=== PATIENT | male | born 1935 | race Caucasian/White ===

== ENCOUNTER 2018-05-07 07:54 | Inpatient (IN) ==
[2018-05-04 11:56] LABS: Basophils % 0.5 % (0.0-0.8); Eosinophils # 0.1 10*3/uL (0.0-0.87); Eosinophils % 1.2 % (0.00-10.9); Hemoglobin 11.1 GM/DL (14.0-18.0); Immature Granulocytes % 0.3 %; Immature Granulocytes Absolute 0.02 #; Lymphocytes # 1.2 10*3/uL (1.4-4.0); Lymphocytes % 20.4 % (21.2-54.2); Mean Corpuscular HGB Conc 31.7 GM/DL (32-36); Mean Corpuscular Hemoglobin 29 PG (27-34); Mean Corpuscular Volume 90.4 FL (87-102); Mean Platelet Volume 9.7 FL (9.6-12.0); Monocytes # 0.4 10*3/uL (0.11-0.8); Monocytes % 5.8 % (1.7-12.7); Neutrophils # 4.4 10*3/uL (1.4-7.4); Neutrophils % 71.8 % (38.7-73.9); Platelet Count 201 T/CUMM (130-400); Red Blood Count 3.87 MC/CUMM (3.8-5.5); Red Cell Distribution Width 17.2 % (9.3-17.3); White Blood Count 6.1 T/CUMM (4-12)
[2018-05-04 12:30] LABS: Albumin 3.7 G/DL (3.4-5.0); Bilirubin,Total 0.5 MG/DL (0.2-1.0); Calcium 8.7 MG/DL (8.5-10.1); Osmolality,Calculated 286.1 MOS/KG (273-304); Total Protein 6.9 G/DL (6.4-8.3)
[~2018-05-07 07:54] MED LIST: ALVIMOPAN 12 MG CAPSULE PO ONE; cefOXitin 2,000 MG in SYRINGE 1 EACH IV ONE
[2018-05-07] MEDS ORDERED: ONDANSETRON 4 MG/2 ML VIAL IV ONE (08:22)
[2018-05-07] MEDS ORDERED: FAMOTIDINE 20 MG TABLET PO ONE (08:22)
[2018-05-07] MEDS ORDERED: LACTATED RINGERS 1,000 ML IV SCH (08:30)
[2018-05-07] MEDS ORDERED: BUPIVACAINE MPF 0.25% /EPI 30 ML VIAL ONE (08:45)
[2018-05-07] MEDS ORDERED: LIDOCAINE 1%/EPI INJ 20 ML VIAL ONE (08:45)
[2018-05-07] MEDS ORDERED: ALVIMOPAN 12 MG CAPSULE ONE (09:14)
[2018-05-07] MEDS ORDERED: ONDANSETRON 4 MG/2 ML VIAL ONE (09:14)
[2018-05-07] MEDS ORDERED: FAMOTIDINE 20 MG TABLET ONE (09:14)
[2018-05-07] MEDS ORDERED: MORPHINE 4 MG/1 ML VIAL IV PRN (11:47)
[2018-05-07] MEDS ORDERED: ALBUTEROL/IPRATROPIUM 3 ML NEB RESP TX PRN (11:47)
[2018-05-07] MEDS ORDERED: LACTATED RINGERS 1,000 ML IV ONE (12:11)
[2018-05-07] MEDS ORDERED: SEVOFLURANE 1 UNIT/15 MINUTE INH ONE (12:11)
[2018-05-07] MEDS ORDERED: fentaNYL 100 MCG/2 ML VIAL ONE ×2 (12:13→12:16)
[2018-05-07] MEDS ORDERED: PROPOFOL 200 MG/20 ML VIAL IV ONE (12:13)
[2018-05-07] MEDS ORDERED: KETAMINE 500 MG/10 ML VIAL ONE (12:14)
[2018-05-07] MEDS ORDERED: GLYCOPYRROLATE 0.4 MG/2 ML VIAL ONE ×2 (12:15)
[2018-05-07] MEDS ORDERED: SUCCINYLCHOLINE 200 MG/10 ML VIAL ONE (12:15)
[2018-05-07] MEDS ORDERED: ROCURONIUM 100 MG/10 ML VIAL IV ONE (12:15)
[2018-05-07] MEDS ORDERED: ePHEDrine 50 MG/ML AMP ONE (12:15)
[2018-05-07] MEDS ORDERED: NEOSTIGMINE 10 MG/10 ML VIAL ONE (12:16)
[2018-05-07] MEDS ORDERED: ONDANSETRON 4 MG/2 ML VIAL IV PRN (12:29)
[2018-05-07] MEDS: HYDROmorphone 2 MG/1 ML VIAL IV PRN ×5 (12:33→19:46)
[2018-05-07 12:35] LABS: Apearance,Urine CLEAR (Clear); Bilirubin,Urine Negative (Negative); Blood, Urine Negative (Negative); Glucose,Urine (UA) Negative (Negative); Ketones,Urine Negative (Negative); Mucus,Urine Occasional /LPF (Occasional); Nitrite,Urine Negative (Negative); Protein,Urine Negative; RBC,Urine 2 /HPF (0-4); Squamous Epithelial Cell,Urine Occasional /HPF (0-10); Urine Color Yellow (Yellow); Urine Urobilinogen < 2.0 EU/DL (0.2-1.0); WBC,Urine <1 /HPF (0-6)
[2018-05-07] MEDS: DEXTROSE 5% LACTATED RINGERS 1,000 ML IV SCH ×2 (13:15→21:43)
[2018-05-07] MEDS: NON-FORMULARY MEDICATION (Naloxegol Oxalate [Movantik] 25 MG) PO SCH (13:53)
[2018-05-07 14:03] LABS: Hemoglobin 10.6 GM/DL (14.0-18.0)
[2018-05-07] MEDS: cefOXitin 2,000 MG in SYRINGE 1 EACH IV SCH ×2 (15:14→21:43)
[2018-05-07 20:16] LABS: Hematocrit 29.6 VOL% (42.0-52.0); Hemoglobin 9.4 GM/DL (14.0-18.0)
[2018-05-07] MEDS: DILTIAZEM CD 180 MG CAPSULE PO SCH (21:43)
[2018-05-08] MEDS: ONDANSETRON 4 MG/2 ML VIAL IV PRN ×2 (01:11→09:40)
[2018-05-08] MEDS ORDERED: FAMOTIDINE 20 MG/2 ML VIAL IV ONE (02:06)
[2018-05-08 03:41] LABS: Basophils % 0.3 % (0.0-0.8); Hematocrit 29.5 VOL% (42.0-52.0); Hemoglobin 9.3 GM/DL (14.0-18.0); Immature Granulocytes % 0.4 %; Immature Granulocytes Absolute 0.03 #; Lymphocytes # 0.8 10*3/uL (1.4-4.0); Lymphocytes % 9.6 % (21.2-54.2); Mean Corpuscular HGB Conc 31.5 GM/DL (32-36); Mean Corpuscular Hemoglobin 28 PG (27-34); Mean Corpuscular Volume 90.2 FL (87-102); Mean Platelet Volume 9.7 FL (9.6-12.0); Monocytes # 0.6 10*3/uL (0.11-0.8); Monocytes % 7.4 % (1.7-12.7); Neutrophils # 6.6 10*3/uL (1.4-7.4); Neutrophils % 82.3 % (38.7-73.9); Platelet Count 198 T/CUMM (130-400); Red Blood Count 3.27 MC/CUMM (3.8-5.5); Red Cell Distribution Width 17.3 % (9.3-17.3)
[2018-05-08 04:08] LABS: Calcium 7.9 MG/DL (8.5-10.1); Osmolality,Calculated 290.8 MOS/KG (273-304); Potassium 3.9 MMOL/L (3.5-5.1)
[2018-05-08] MEDS: cefOXitin 2,000 MG in SYRINGE 1 EACH IV SCH (04:43)
[2018-05-08] MEDS: DEXTROSE 5% LACTATED RINGERS 1,000 ML IV SCH (06:37)
[2018-05-08] MEDS: DILTIAZEM CD 180 MG CAPSULE PO SCH ×2 (08:42→21:21)
[2018-05-08] MEDS: PANTOPRAZOLE 40 MG TABLET PO SCH (08:42)
[2018-05-08] MEDS: GLIMEPIRIDE 2 MG TABLET PO PRN (08:42)
[2018-05-08] MEDS: APIXABAN 5 MG TABLET PO SCH ×2 (09:48→21:21)
[2018-05-08] MEDS: NON-FORMULARY MEDICATION (Naloxegol Oxalate [Movantik] 25 MG) PO SCH (14:43)
[2018-05-09] MEDS: INSULIN REGULAR 100 UNIT/ML SUBCUT SCH ×4 (07:48→20:13)
[2018-05-09] MEDS: PANTOPRAZOLE 40 MG TABLET PO SCH (09:21)
[2018-05-09] MEDS: APIXABAN 5 MG TABLET PO SCH ×2 (09:21→21:12)
[2018-05-09] MEDS: DILTIAZEM CD 180 MG CAPSULE PO SCH ×2 (09:24→21:12)
[2018-05-09] MEDS: NON-FORMULARY MEDICATION (Naloxegol Oxalate [Movantik] 25 MG) PO SCH (11:24)
[2018-05-09] MEDS: DEXTROSE 5% LACTATED RINGERS 1,000 ML IV SCH (12:27)
[2018-05-09] MEDS: HYDROmorphone 2 MG/1 ML VIAL IV PRN (15:02)
[2018-05-10 05:41] LABS: Basophils % 0.1 % (0.0-0.8); Eosinophils # 0.2 10*3/uL (0.0-0.87); Eosinophils % 2.1 % (0.00-10.9); Hematocrit 28.8 VOL% (42.0-52.0); Hemoglobin 9.1 GM/DL (14.0-18.0); Immature Granulocytes % 0.5 %; Immature Granulocytes Absolute 0.04 #; Lymphocytes # 1.1 10*3/uL (1.4-4.0); Lymphocytes % 14.7 % (21.2-54.2); Mean Corpuscular HGB Conc 31.6 GM/DL (32-36); Mean Corpuscular Hemoglobin 29 PG (27-34); Mean Corpuscular Volume 91.4 FL (87-102); Mean Platelet Volume 10.1 FL (9.6-12.0); Monocytes # 0.5 10*3/uL (0.11-0.8); Monocytes % 6.4 % (1.7-12.7); Neutrophils # 5.7 10*3/uL (1.4-7.4); Neutrophils % 76.2 % (38.7-73.9); Platelet Count 221 T/CUMM (130-400); Red Blood Count 3.15 MC/CUMM (3.8-5.5); Red Cell Distribution Width 16.9 % (9.3-17.3); White Blood Count 7.5 T/CUMM (4-12)
[2018-05-10 05:48] LABS: Calcium 8.7 MG/DL (8.5-10.1); Potassium 3.6 MMOL/L (3.5-5.1)
[2018-05-10] MEDS ORDERED: MAGNESIUM SULF RIDER 2 GM in PREMIX 1 EACH IV ONE (07:05)
[2018-05-10] MEDS: INSULIN REGULAR 100 UNIT/ML SUBCUT SCH ×4 (08:22→21:41)
[2018-05-10] MEDS: GLIMEPIRIDE 2 MG TABLET PO PRN (08:23)
[2018-05-10] MEDS: DILTIAZEM CD 180 MG CAPSULE PO SCH ×2 (08:23→21:40)
[2018-05-10] MEDS: APIXABAN 5 MG TABLET PO SCH ×2 (08:25→21:41)
[2018-05-10] MEDS: PANTOPRAZOLE 40 MG TABLET PO SCH (08:26)
[2018-05-10] MEDS ORDERED: MAGNESIUM SULF RIDER 4 GM in PREMIX 1 EACH IV PRN (08:34)
[2018-05-10] MEDS ORDERED: MAGNESIUM SULF RIDER 2 GM in PREMIX 1 EACH IV PRN (08:34)
[2018-05-10] MEDS: NON-FORMULARY MEDICATION (Naloxegol Oxalate [Movantik] 25 MG) PO SCH (13:09)
[2018-05-10] MEDS: HYDROmorphone 2 MG/1 ML VIAL IV PRN (15:28)
[2018-05-10] MEDS: ZALEPLON 5 MG CAPSULE PO PRN (23:22)
[2018-05-11 05:53] LABS: Basophils % 0.5 % (0.0-0.8); Eosinophils # 0.3 10*3/uL (0.0-0.87); Eosinophils % 4.7 % (0.00-10.9); Hematocrit 29.1 VOL% (42.0-52.0); Hemoglobin 9.2 GM/DL (14.0-18.0); Immature Granulocytes % 0.3 %; Immature Granulocytes Absolute 0.02 #; Lymphocytes # 0.9 10*3/uL (1.4-4.0); Mean Corpuscular HGB Conc 31.6 GM/DL (32-36); Mean Corpuscular Hemoglobin 29 PG (27-34); Mean Corpuscular Volume 90.9 FL (87-102); Mean Platelet Volume 9.8 FL (9.6-12.0); Monocytes # 0.5 10*3/uL (0.11-0.8); Neutrophils # 4.1 10*3/uL (1.4-7.4); Neutrophils % 71.5 % (38.7-73.9); Platelet Count 224 T/CUMM (130-400); Red Cell Distribution Width 16.9 % (9.3-17.3); White Blood Count 5.7 T/CUMM (4-12)
[2018-05-11] MEDS: INSULIN REGULAR 100 UNIT/ML SUBCUT SCH ×4 (08:34→20:07)
[2018-05-11] MEDS ORDERED: TUBERCULIN SKIN TEST 0.1 ML SYRINGE INTRADERM ONE (09:18)
[2018-05-11] MEDS: PANTOPRAZOLE 40 MG TABLET PO SCH (10:52)
[2018-05-11] MEDS: LISINOPRIL 2.5 MG TABLET PO SCH (10:52)
[2018-05-11] MEDS: APIXABAN 5 MG TABLET PO SCH ×2 (10:52→20:07)
[2018-05-11] MEDS: DILTIAZEM CD 180 MG CAPSULE PO SCH ×2 (10:53→20:07)
[2018-05-11] MEDS: ZALEPLON 5 MG CAPSULE PO PRN (20:07)
[2018-05-12 05:11] LABS: Calcium 8.7 MG/DL (8.5-10.1); Potassium 3.8 MMOL/L (3.5-5.1)
[2018-05-12] MEDS: LISINOPRIL 2.5 MG TABLET PO SCH (09:06)
[2018-05-12] MEDS: INSULIN REGULAR 100 UNIT/ML SUBCUT SCH ×4 (09:06→21:39)
[2018-05-12] MEDS: APIXABAN 5 MG TABLET PO SCH ×2 (09:07→21:39)
[2018-05-12] MEDS: DILTIAZEM CD 180 MG CAPSULE PO SCH ×2 (09:07→21:39)
[2018-05-12] MEDS: PANTOPRAZOLE 40 MG TABLET PO SCH (09:07)
[2018-05-12] MEDS ORDERED: ALUMINUM/MAGNES/SIMETH MAX STR 30 ML UDCUP PO PRN (14:29)
[2018-05-12] MEDS: ONDANSETRON 4 MG/2 ML VIAL IV PRN (17:30)
[2018-05-12] MEDS: HYDROmorphone 2 MG/1 ML VIAL IV PRN (17:39)
[2018-05-12] MEDS: ZALEPLON 5 MG CAPSULE PO PRN (21:39)
[2018-05-13 07:21] VITALS: BP 141/80
[2018-05-13] MEDS: INSULIN REGULAR 100 UNIT/ML SUBCUT SCH (07:29)
[2018-05-13] MEDS: LISINOPRIL 2.5 MG TABLET PO SCH (07:46)
[2018-05-13] MEDS: APIXABAN 5 MG TABLET PO SCH (07:46)
[2018-05-13] MEDS: DILTIAZEM CD 180 MG CAPSULE PO SCH (07:46)
[2018-05-13] MEDS: PANTOPRAZOLE 40 MG TABLET PO SCH (07:47)
== END 2018-05-13 08:50 | disposition swing bed (61) | DRG 331 ==
LOC: N.OR 07:54 → N.SDSINP 07:55 → N.ICU 13:15 → N.3E 05-08 11:22
PROVIDERS: ADMIT Surgery; ATTEND Surgery

== ENCOUNTER 2020-07-11 16:10 | Inpatient (IN) ==
[2020-07-11 16:51] LABS: Basophils % 0.3 % (0.0-0.8); Eosinophils # 0.1 10*3/uL (0.0-0.87); Eosinophils % 0.5 % (0.00-10.9); Hemoglobin 12.8 GM/DL (14.0-18.0); Immature Granulocytes % 0.4 %; Immature Granulocytes Absolute 0.04 #; Lymphocytes # 0.2 10*3/uL (1.4-4.0); Lymphocytes % 2.3 % (21.2-54.2); Mean Corpuscular HGB Conc 33.7 GM/DL (32-36); Mean Corpuscular Volume 94.1 FL (87-102); Mean Platelet Volume 10.6 FL (9.6-12.0); Monocytes % 2.8 % (1.7-12.7); Neutrophils % 93.7 % (38.7-73.9); Platelet Count 221 T/CUMM (130-400); Red Blood Count 4.04 MC/CUMM (3.8-5.5); Red Cell Distribution Width 15.4 % (9.3-17.3); White Blood Count 9.8 T/CUMM (4-12)
[2020-07-11 17:23] LABS: INR 1.2; PT Patient Result 13.1 SECS (9.8-11.9); Partial Thromboplastin Time 28.7 SECS (23.9-33.8)
[2020-07-11 17:25] LABS: Albumin 3.3 G/DL (3.4-5.0); Bilirubin,Total 0.7 MG/DL (0.2-1.0); Calcium 8.3 MG/DL (8.5-10.1); Potassium 4.5 MMOL/L (3.5-5.1); Total Protein 6.7 G/DL (6.4-8.3)
[2020-07-11 17:30] LABS: Lymphocytes 1 % (20-55); Segmented Neutrophils 99 % (50-85); Total Cells Counted 100
[2020-07-11 17:31] LABS: Hypochromasia 1+; Macrocytosis Slight; Toxic Granulation 2+
[2020-07-11 17:32] LABS: Platelet Estimate Normal; Schistocytes 1+
[2020-07-11 17:46] LABS: Bilirubin,Urine Negative (Negative); Blood, Urine Large mg/dL (Negative); Glucose,Urine (UA) Negative (Negative); Ketones,Urine Negative (Negative); Mucus,Urine Occasional /LPF (Occasional); Nitrite,Urine Positive (Negative); Protein,Urine 30 MG/DL; RBC,Urine 565 /HPF (0-4); Urine Appearance Slightly Hazy (Clear); Urine Color Yellow (Yellow); Urine Specific Gravity 1.016 (1.001-1.035); Urine Urobilinogen < 2.0 EU/DL (0.2-1.0); WBC,Urine 33 /HPF (0-6)
[2020-07-11] MEDS ORDERED: ONDANSETRON 4 MG/2 ML VIAL IV STA (18:03)
[2020-07-11] MEDS ORDERED: cefTRIAXone 1,000 MG in SODIUM CHLORIDE 0.9% 100 ML IV STA (18:03)
[2020-07-11] MEDS ORDERED: GLUCAGON 1 MG VIAL IM PRN ×2 (18:53→19:12)
[2020-07-11] MEDS ORDERED: DEXTROSE 50% 25 GM/50 ML VIAL IV PRN ×2 (18:53→19:12)
[2020-07-11] MEDS ORDERED: ACETAMINOPHEN 325 MG TABLET PO PRN (19:12)
[2020-07-11] MEDS ORDERED: ONDANSETRON 4 MG/2 ML VIAL IV PRN (19:12)
[2020-07-11] MEDS ORDERED: GLIMEPIRIDE 2 MG TABLET PO PRN (19:28)
[2020-07-11] MEDS ORDERED: NALOXEGOL 25 MG PO SCH (21:00)
[2020-07-11] MEDS ORDERED: cefTRIAXone 1,000 MG in SYRINGE 1 EACH IV SCH (21:00)
[2020-07-11] MEDS: SODIUM CHLORIDE 0.45% 1,000 ML IV SCH (21:29)
[2020-07-11] MEDS: INSULIN LISPRO 100 UNIT/ML SUBCUT SCH (21:47)
[2020-07-11] MEDS: APIXABAN 5 MG TABLET PO SCH (21:48)
[2020-07-11] MEDS: DILTIAZEM CD 180 MG CAPSULE PO SCH (21:48)
[2020-07-12] MEDS: ALBUTEROL/IPRATROPIUM 3 ML NEB RESP TX SCH ×4 (00:25→19:50)
[2020-07-12 03:29] LABS: Mean Corpuscular Volume 93.8 FL (87-102)
[2020-07-12 03:36] LABS: Basophils % 0.1 % (0.0-0.8); Hematocrit 31.9 VOL% (42.0-52.0); Immature Granulocytes % 0.7 %; Lymphocytes # 0.3 10*3/uL (1.4-4.0); Lymphocytes % 2.2 % (21.2-54.2); Mean Corpuscular HGB Conc 33.9 GM/DL (32-36); Monocytes % 4.6 % (1.7-12.7); Neutrophils % 92.4 % (38.7-73.9); Red Cell Distribution Width 15.3 % (9.3-17.3)
[2020-07-12 03:39] LABS: Hemoglobin 10.8 GM/DL (14.0-18.0); Platelet Count 166 T/CUMM (130-400); White Blood Count 14.5 T/CUMM (4-12)
[2020-07-12 03:56] LABS: Band Neutrophils 1 % (0-10); Hypochromasia 1+; Lymphocytes 2 % (20-55); Microcytosis 1+; Ovalocytes Slight; Platelet Estimate Adequate; Segmented Neutrophils 93 % (50-85); Total Cells Counted 100
[2020-07-12 03:56] LABS: Calcium 8.1 MG/DL (8.5-10.1); Osmolality,Calculated 286.4 MOS/KG (273-304); Potassium 3.9 MMOL/L (3.5-5.1); Risk Ratio 2.04; Thyroid Stimulating Hormone 1.41 uIU/ml (0.358-3.74); VLDL CHOLESTEROL 7.4 MG/DL
[2020-07-12] MEDS: INSULIN LISPRO 100 UNIT/ML SUBCUT SCH ×4 (07:30→21:30)
[2020-07-12] MEDS: SODIUM CHLORIDE 0.45% 1,000 ML IV SCH ×2 (07:30→18:14)
[2020-07-12] MEDS: APIXABAN 5 MG TABLET PO SCH ×2 (09:00→21:08)
[2020-07-12] MEDS: DILTIAZEM CD 180 MG CAPSULE PO SCH ×2 (09:00→21:08)
[2020-07-12] MEDS: TAMSULOSIN 0.4 MG CAPSULE PO SCH (09:00)
[2020-07-12] MEDS ORDERED: PANTOPRAZOLE 40 MG TABLET PO SCH (09:00)
[2020-07-12] MEDS ORDERED: cefTRIAXone 2,000 MG in SYRINGE 1 EACH IV SCH (11:00)
[2020-07-12] MEDS ORDERED: cefTRIAXone 1,000 MG in SYRINGE 1 EACH IV ONE (12:00)
[2020-07-12] MEDS ORDERED: MELATONIN 3 MG TABLET PO PRN (14:02)
[2020-07-13] MEDS: SODIUM CHLORIDE 0.45% 1,000 ML IV SCH ×3 (01:30→13:08)
[2020-07-13] MEDS: ALBUTEROL/IPRATROPIUM 3 ML NEB RESP TX SCH ×4 (01:33→18:48)
[2020-07-13] MEDS: FAMOTIDINE 20 MG TABLET PO SCH (10:43)
[2020-07-13] MEDS: PARoxetine 20 MG TABLET PO SCH (10:43)
[2020-07-13] MEDS: DILTIAZEM CD 180 MG CAPSULE PO SCH ×2 (10:43→21:21)
[2020-07-13] MEDS: APIXABAN 5 MG TABLET PO SCH ×2 (10:44→21:22)
[2020-07-13] MEDS: TAMSULOSIN 0.4 MG CAPSULE PO SCH (10:44)
[2020-07-13] MEDS: INSULIN LISPRO 100 UNIT/ML SUBCUT SCH ×4 (11:21→21:36)
[2020-07-13] MEDS ORDERED: MEROPENEM 1,000 MG in SODIUM CHLORIDE 0.9% 100 ML IV SCH (15:00)
[2020-07-14] MEDS: ALBUTEROL/IPRATROPIUM 3 ML NEB RESP TX SCH ×4 (01:28→19:52)
[2020-07-14] MEDS: SODIUM CHLORIDE 0.45% 1,000 ML IV SCH ×2 (02:00→10:02)
[2020-07-14 05:46] LABS: Basophils % 0.2 % (0.0-0.8); Eosinophils # 0.1 10*3/uL (0.0-0.87); Eosinophils % 1.4 % (0.00-10.9); Hematocrit 26.9 VOL% (42.0-52.0); Immature Granulocytes % 0.4 %; Immature Granulocytes Absolute 0.02 #; Lymphocytes # 0.3 10*3/uL (1.4-4.0); Lymphocytes % 5.8 % (21.2-54.2); Mean Corpuscular HGB Conc 33.5 GM/DL (32-36); Mean Corpuscular Volume 94.7 FL (87-102); Mean Platelet Volume 10.5 FL (9.6-12.0); Neutrophils % 83.2 % (38.7-73.9); Platelet Count 124 T/CUMM (130-400); Red Blood Count 2.84 MC/CUMM (3.8-5.5); Red Cell Distribution Width 15.2 % (9.3-17.3)
[2020-07-14 05:58] LABS: Calcium 6.4 MG/DL (8.5-10.1); Osmolality,Calculated 266.7 MOS/KG (273-304); Potassium 3.3 MMOL/L (3.5-5.1)
[2020-07-14] MEDS ORDERED: POTASSIUM CHLORIDE 20 MEQ PACK PO ONE (08:28)
[2020-07-14] MEDS ORDERED: MAGNESIUM SULF RIDER 4 GM in PREMIX 1 EACH IV ONE (08:28)
[2020-07-14] MEDS: PARoxetine 20 MG TABLET PO SCH (09:42)
[2020-07-14] MEDS: FAMOTIDINE 20 MG TABLET PO SCH (09:43)
[2020-07-14] MEDS: TAMSULOSIN 0.4 MG CAPSULE PO SCH (09:43)
[2020-07-14] MEDS: DILTIAZEM CD 180 MG CAPSULE PO SCH ×2 (09:43→21:40)
[2020-07-14] MEDS: ENOXAPARIN 100 MG/ML SYRINGE SUBCUT SCH ×2 (09:54→21:41)
[2020-07-14] MEDS: INSULIN LISPRO 100 UNIT/ML SUBCUT SCH ×4 (10:02→21:57)
[2020-07-14] MEDS: BISACODYL 5 MG TABLET PO PRN (15:22)
[2020-07-15] MEDS: ALBUTEROL/IPRATROPIUM 3 ML NEB RESP TX SCH ×4 (01:10→18:56)
[2020-07-15 06:00] LABS: Basophils % 0.6 % (0.0-0.8); Eosinophils # 0.1 10*3/uL (0.0-0.87); Eosinophils % 1.8 % (0.00-10.9); Hematocrit 31.1 VOL% (42.0-52.0); Hemoglobin 10.5 GM/DL (14.0-18.0); Immature Granulocytes % 0.2 %; Immature Granulocytes Absolute 0.01 #; Lymphocytes # 0.4 10*3/uL (1.4-4.0); Lymphocytes % 7.6 % (21.2-54.2); Mean Corpuscular HGB Conc 33.8 GM/DL (32-36); Mean Corpuscular Volume 93.4 FL (87-102); Mean Platelet Volume 10.5 FL (9.6-12.0); Monocytes % 11.5 % (1.7-12.7); Neutrophils % 78.3 % (38.7-73.9); Platelet Count 166 T/CUMM (130-400); Red Blood Count 3.33 MC/CUMM (3.8-5.5)
[2020-07-15 06:25] LABS: Calcium 8.1 MG/DL (8.5-10.1); Osmolality,Calculated 285.3 MOS/KG (273-304); Potassium 4.2 MMOL/L (3.5-5.1)
[2020-07-15] MEDS: INSULIN LISPRO 100 UNIT/ML SUBCUT SCH ×4 (07:25→22:57)
[2020-07-15] MEDS: FAMOTIDINE 20 MG TABLET PO SCH (10:15)
[2020-07-15] MEDS: DILTIAZEM CD 180 MG CAPSULE PO SCH ×2 (10:15→23:28)
[2020-07-15] MEDS: TAMSULOSIN 0.4 MG CAPSULE PO SCH (10:15)
[2020-07-15] MEDS: ENOXAPARIN 100 MG/ML SYRINGE SUBCUT SCH ×2 (10:16→23:28)
[2020-07-15] MEDS: PARoxetine 20 MG TABLET PO SCH (10:16)
[2020-07-15] MEDS: BISACODYL 5 MG TABLET PO PRN ×4 (10:18→23:28)
[2020-07-15] MEDS ORDERED: POLYETHYLENE GLYCOL POWDER 17 GM PACK PO ONE (15:30)
[2020-07-15] MEDS: POLYETHYLENE GLYCOL POWDER 17 GM PACK PO SCH (23:27)
[2020-07-16] MEDS: ALBUTEROL/IPRATROPIUM 3 ML NEB RESP TX SCH ×4 (00:35→19:00)
[2020-07-16 06:22] LABS: Basophils % 0.1 % (0.0-0.8); Eosinophils % 0.3 % (0.00-10.9); Hematocrit 33.2 VOL% (42.0-52.0); Hemoglobin 11.3 GM/DL (14.0-18.0); Immature Granulocytes % 0.5 %; Immature Granulocytes Absolute 0.04 #; Lymphocytes # 0.5 10*3/uL (1.4-4.0); Lymphocytes % 6.5 % (21.2-54.2); Mean Corpuscular Volume 91.7 FL (87-102); Mean Platelet Volume 10.2 FL (9.6-12.0); Monocytes % 11.1 % (1.7-12.7); Neutrophils % 81.5 % (38.7-73.9); Platelet Count 183 T/CUMM (130-400); Red Blood Count 3.62 MC/CUMM (3.8-5.5); Red Cell Distribution Width 14.7 % (9.3-17.3); White Blood Count 7.3 T/CUMM (4-12)
[2020-07-16 06:48] LABS: Calcium 8.6 MG/DL (8.5-10.1); Osmolality,Calculated 284.4 MOS/KG (273-304); Potassium 3.9 MMOL/L (3.5-5.1)
[2020-07-16] MEDS: TAMSULOSIN 0.4 MG CAPSULE PO SCH (10:05)
[2020-07-16] MEDS: INSULIN LISPRO 100 UNIT/ML SUBCUT SCH ×4 (10:05→20:36)
[2020-07-16] MEDS: PARoxetine 20 MG TABLET PO SCH (10:06)
[2020-07-16] MEDS: FAMOTIDINE 20 MG TABLET PO SCH (10:06)
[2020-07-16] MEDS: DILTIAZEM CD 180 MG CAPSULE PO SCH ×2 (10:07→20:38)
[2020-07-16] MEDS: POLYETHYLENE GLYCOL POWDER 17 GM PACK PO SCH ×2 (10:08→20:35)
[2020-07-16] MEDS: ENOXAPARIN 100 MG/ML SYRINGE SUBCUT SCH ×2 (10:08→20:38)
[2020-07-16] MEDS: BISACODYL 5 MG TABLET PO PRN (10:13)
[2020-07-17] MEDS: ALBUTEROL/IPRATROPIUM 3 ML NEB RESP TX SCH ×4 (00:08→19:37)
[2020-07-17] MEDS ORDERED: cloNIDine 0.1 MG TABLET PO ONE (04:30)
[2020-07-17] MEDS: PARoxetine 20 MG TABLET PO SCH (08:48)
[2020-07-17] MEDS: TAMSULOSIN 0.4 MG CAPSULE PO SCH (08:49)
[2020-07-17] MEDS: DILTIAZEM CD 180 MG CAPSULE PO SCH ×2 (08:49→21:38)
[2020-07-17] MEDS: INSULIN LISPRO 100 UNIT/ML SUBCUT SCH ×4 (08:49→21:53)
[2020-07-17] MEDS: ENOXAPARIN 100 MG/ML SYRINGE SUBCUT SCH ×2 (08:50→21:38)
[2020-07-17] MEDS: POLYETHYLENE GLYCOL POWDER 17 GM PACK PO SCH ×2 (08:50→21:39)
[2020-07-17] MEDS: FAMOTIDINE 20 MG TABLET PO SCH (09:06)
[2020-07-18] MEDS: ALBUTEROL/IPRATROPIUM 3 ML NEB RESP TX SCH ×3 (00:11→13:25)
[2020-07-18 05:40] LABS: Basophils % 0.3 % (0.0-0.8); Eosinophils % 0.3 % (0.00-10.9); Hematocrit 32.4 VOL% (42.0-52.0); Hemoglobin 11.1 GM/DL (14.0-18.0); Immature Granulocytes % 0.7 %; Immature Granulocytes Absolute 0.08 #; Lymphocytes # 0.5 10*3/uL (1.4-4.0); Lymphocytes % 4.5 % (21.2-54.2); Mean Corpuscular HGB Conc 34.3 GM/DL (32-36); Mean Corpuscular Volume 92.6 FL (87-102); Mean Platelet Volume 10.1 FL (9.6-12.0); Monocytes % 9.3 % (1.7-12.7); Neutrophils % 84.9 % (38.7-73.9); Platelet Count 236 T/CUMM (130-400); Red Cell Distribution Width 14.8 % (9.3-17.3); White Blood Count 11.2 T/CUMM (4-12)
[2020-07-18 05:56] LABS: Calcium 9.1 MG/DL (8.5-10.1); Osmolality,Calculated 293.4 MOS/KG (273-304); Potassium 4.1 MMOL/L (3.5-5.1)
[2020-07-18 06:30] LABS: Band Neutrophils 1 % (0-10); Lymphocytes 4 % (20-55); Platelet Estimate Normal; Segmented Neutrophils 86 % (50-85); Total Cells Counted 100
[2020-07-18 06:31] LABS: Hypochromasia Slight
[2020-07-18] MEDS: INSULIN LISPRO 100 UNIT/ML SUBCUT SCH ×3 (07:44→17:47)
[2020-07-18] MEDS: FAMOTIDINE 20 MG TABLET PO SCH (08:17)
[2020-07-18] MEDS: PARoxetine 20 MG TABLET PO SCH (08:17)
[2020-07-18] MEDS: TAMSULOSIN 0.4 MG CAPSULE PO SCH (08:17)
[2020-07-18] MEDS: DILTIAZEM CD 180 MG CAPSULE PO SCH (08:17)
[2020-07-18] MEDS: POLYETHYLENE GLYCOL POWDER 17 GM PACK PO SCH (08:18)
[2020-07-18] MEDS: ENOXAPARIN 100 MG/ML SYRINGE SUBCUT SCH (08:22)
[2020-07-18 16:59] VITALS: BP 133/73
== END 2020-07-18 19:20 | disposition home health service (06) | DRG 690 ==
LOC: N.EDINP 16:10 → N.ED 16:10 → SUATTDRO 19:46 → N.EDINP 19:56 → N.5E 20:31 → SUATTDRO 07-12 14:30
PROVIDERS: ADMIT Phlebology; ATTEND Internal Medicine

== ENCOUNTER 2020-07-20 13:08 | Inpatient (IN) ==
[2020-07-20 14:15] LABS: Basophils % 0.2 % (0.0-0.8); Eosinophils # 0.1 10*3/uL (0.0-0.87); Eosinophils % 0.9 % (0.00-10.9); Hematocrit 33.5 VOL% (42.0-52.0); Hemoglobin 11.4 GM/DL (14.0-18.0); Immature Granulocytes % 0.4 %; Immature Granulocytes Absolute 0.04 #; Lymphocytes # 0.6 10*3/uL (1.4-4.0); Lymphocytes % 5.2 % (21.2-54.2); Mean Platelet Volume 9.6 FL (9.6-12.0); Monocytes % 8.4 % (1.7-12.7); Neutrophils % 84.9 % (38.7-73.9); Platelet Count 272 T/CUMM (130-400); Red Blood Count 3.64 MC/CUMM (3.8-5.5); Red Cell Distribution Width 14.6 % (9.3-17.3); White Blood Count 11.3 T/CUMM (4-12)
[2020-07-20 14:27] LABS: INR 1.2; PT Patient Result 12.5 SECS (9.8-11.9); Partial Thromboplastin Time 37.2 SECS (23.9-33.8)
[2020-07-20 15:13] LABS: Calcium 8.8 MG/DL (8.5-10.1); Potassium 4.3 MMOL/L (3.5-5.1)
[2020-07-20 16:19] LABS: Bacteria,Urine Occasional /HPF (Few); Bilirubin,Urine Negative (Negative); Blood, Urine Large mg/dL (Negative); Glucose,Urine (UA) Negative (Negative); Ketones,Urine Negative (Negative); Nitrite,Urine Negative (Negative); Protein,Urine Negative; RBC,Urine 38 /HPF (0-4); Urine Appearance CLEAR (Clear); Urine Color Yellow (Yellow); Urine Specific Gravity 1.014 (1.001-1.035); Urine Urobilinogen < 2.0 EU/DL (0.2-1.0); WBC,Urine 6 /HPF (0-6)
[2020-07-20] MEDS ORDERED: GLUCAGON 1 MG VIAL IM PRN (16:55)
[2020-07-20] MEDS ORDERED: DEXTROSE 50% 25 GM/50 ML VIAL IV PRN (16:55)
[2020-07-20] MEDS: SODIUM CHLORIDE 0.9% 1,000 ML IV SCH (23:19)
[2020-07-20] MEDS: MEROPENEM 500 MG in SODIUM CHLORIDE 0.9% 100 ML IV SCH (23:21)
[2020-07-20] MEDS: DILTIAZEM CD 180 MG CAPSULE PO SCH (23:27)
[2020-07-20] MEDS: TAMSULOSIN 0.4 MG CAPSULE PO SCH (23:28)
[2020-07-20] MEDS: APIXABAN 5 MG TABLET PO SCH (23:28)
[2020-07-21] MEDS: ACETAMINOPHEN 325 MG TABLET PO PRN ×2 (03:45→09:48)
[2020-07-21 06:04] LABS: Basophils % 0.3 % (0.0-0.8); Eosinophils # 0.3 10*3/uL (0.0-0.87); Eosinophils % 2.1 % (0.00-10.9); Hematocrit 30.9 VOL% (42.0-52.0); Hemoglobin 10.3 GM/DL (14.0-18.0); Immature Granulocytes % 0.4 %; Immature Granulocytes Absolute 0.05 #; Lymphocytes # 0.4 10*3/uL (1.4-4.0); Lymphocytes % 3.6 % (21.2-54.2); Mean Corpuscular HGB Conc 33.3 GM/DL (32-36); Mean Corpuscular Volume 93.9 FL (87-102); Mean Platelet Volume 9.6 FL (9.6-12.0); Monocytes % 7.5 % (1.7-12.7); Neutrophils % 86.1 % (38.7-73.9); Platelet Count 283 T/CUMM (130-400); Red Blood Count 3.29 MC/CUMM (3.8-5.5); Red Cell Distribution Width 14.6 % (9.3-17.3); White Blood Count 11.7 T/CUMM (4-12)
[2020-07-21] MEDS: SODIUM CHLORIDE 0.9% 1,000 ML IV SCH ×3 (06:24→22:03)
[2020-07-21] MEDS: MEROPENEM 500 MG in SODIUM CHLORIDE 0.9% 100 ML IV SCH ×2 (06:25→18:19)
[2020-07-21 06:34] LABS: Calcium 8.8 MG/DL (8.5-10.1); Osmolality,Calculated 299.7 MOS/KG (273-304)
[2020-07-21 07:51] LABS: Band Neutrophils 5 % (0-10); Eosinophils 2 % (0-10); Lymphocytes 4 % (20-55); Platelet Estimate Normal; Segmented Neutrophils 85 % (50-85); Total Cells Counted 100
[2020-07-21 07:52] LABS: Anisocytosis 1+; Burr Cells Few; Macrocytosis Slight; Ovalocytes Few; Poikilocytosis 1+; Target Cells Few
[2020-07-21] MEDS: DILTIAZEM CD 180 MG CAPSULE PO SCH ×2 (09:04→22:01)
[2020-07-21] MEDS: PANTOPRAZOLE 40 MG TABLET PO SCH (09:04)
[2020-07-21] MEDS: ENOXAPARIN 120 MG/0.8 ML SYRINGE SUBCUT SCH (11:10)
[2020-07-21] MEDS: MORPHINE 4 MG/1 ML VIAL IV PRN (15:23)
[2020-07-21] MEDS: TAMSULOSIN 0.4 MG CAPSULE PO SCH (22:01)
[2020-07-21] MEDS: MINERAL OIL/PETROLATUM OPH OINT 3.5 GM TUBE BOTH EYES SCH (22:03)
[2020-07-22] MEDS: SODIUM CHLORIDE 0.9% 1,000 ML IV SCH ×2 (04:45→22:29)
[2020-07-22 06:02] LABS: Basophils % 0.4 % (0.0-0.8); Eosinophils # 0.3 10*3/uL (0.0-0.87); Eosinophils % 4.4 % (0.00-10.9); Hematocrit 29.4 VOL% (42.0-52.0); Hemoglobin 9.9 GM/DL (14.0-18.0); Immature Granulocytes % 0.4 %; Immature Granulocytes Absolute 0.03 #; Lymphocytes # 0.6 10*3/uL (1.4-4.0); Lymphocytes % 8.1 % (21.2-54.2); Mean Corpuscular HGB Conc 33.7 GM/DL (32-36); Mean Corpuscular Volume 94.5 FL (87-102); Mean Platelet Volume 9.8 FL (9.6-12.0); Monocytes % 8.3 % (1.7-12.7); Neutrophils % 78.4 % (38.7-73.9); Platelet Count 281 T/CUMM (130-400); Red Blood Count 3.11 MC/CUMM (3.8-5.5); Red Cell Distribution Width 14.5 % (9.3-17.3); White Blood Count 6.8 T/CUMM (4-12)
[2020-07-22 06:11] LABS: Calcium 8.3 MG/DL (8.5-10.1); Osmolality,Calculated 301.4 MOS/KG (273-304)
[2020-07-22] MEDS: MEROPENEM 500 MG in SODIUM CHLORIDE 0.9% 100 ML IV SCH ×2 (06:18→17:26)
[2020-07-22] MEDS: MORPHINE 4 MG/1 ML VIAL IV PRN (08:17)
[2020-07-22] MEDS: DILTIAZEM CD 180 MG CAPSULE PO SCH ×2 (08:19→22:10)
[2020-07-22] MEDS: PANTOPRAZOLE 40 MG TABLET PO SCH (08:19)
[2020-07-22] MEDS: CARBOXYMETHYLCELLULOSE 1% OPH SOLN BOTH EYES PRN ×2 (08:20→13:31)
[2020-07-22] MEDS ORDERED: PARoxetine 10 MG TABLET PO SCH (09:00)
[2020-07-22 09:56] LABS: Mucus,Urine Occasional /LPF (Occasional); RBC,Urine 836 /HPF (0-4); Sperm,Urine Occasional /HPF (Negative); WBC,Urine 203 /HPF (0-6)
[2020-07-22 09:58] LABS: Bilirubin,Urine Negative (Negative); Glucose,Urine (UA) Negative (Negative); Ketones,Urine Negative (Negative); Nitrite,Urine Negative (Negative); Protein,Urine 100 MG/DL; Urine Appearance CLOUDY (Clear); Urine Color Brown (Yellow); Urine Specific Gravity 1.015 (1.001-1.035)
[2020-07-22 09:59] LABS: Blood, Urine 1+ mg/dL (Negative); Urine Urobilinogen < 1.0 EU/DL (0.2-1.0)
[2020-07-22] MEDS: HYDROmorphone 2 MG/1 ML VIAL IV PRN ×2 (13:29→22:12)
[2020-07-22] MEDS: ENOXAPARIN 120 MG/0.8 ML SYRINGE SUBCUT SCH (13:30)
[2020-07-22] MEDS: PARoxetine 20 MG TABLET PO SCH (13:47)
[2020-07-22] MEDS: MINERAL OIL/PETROLATUM OPH OINT 3.5 GM TUBE BOTH EYES SCH (22:11)
[2020-07-22] MEDS: TAMSULOSIN 0.4 MG CAPSULE PO SCH (22:11)
[2020-07-23] MEDS: MEROPENEM 500 MG in SODIUM CHLORIDE 0.9% 100 ML IV SCH ×2 (05:28→18:30)
[2020-07-23 07:01] LABS: Basophils % 0.5 % (0.0-0.8); Eosinophils # 0.2 10*3/uL (0.0-0.87); Eosinophils % 3.7 % (0.00-10.9); Hematocrit 28.4 VOL% (42.0-52.0); Hemoglobin 9.4 GM/DL (14.0-18.0); Immature Granulocytes % 0.5 %; Immature Granulocytes Absolute 0.03 #; Lymphocytes # 0.6 10*3/uL (1.4-4.0); Lymphocytes % 9.9 % (21.2-54.2); Mean Corpuscular HGB Conc 33.1 GM/DL (32-36); Mean Corpuscular Volume 96.6 FL (87-102); Mean Platelet Volume 9.6 FL (9.6-12.0); Monocytes % 8.1 % (1.7-12.7); Neutrophils % 77.3 % (38.7-73.9); Platelet Count 280 T/CUMM (130-400); Red Blood Count 2.94 MC/CUMM (3.8-5.5); Red Cell Distribution Width 14.6 % (9.3-17.3); White Blood Count 6.2 T/CUMM (4-12)
[2020-07-23 07:21] LABS: Calcium 8.2 MG/DL (8.5-10.1); Osmolality,Calculated 302.3 MOS/KG (273-304); Potassium 3.9 MMOL/L (3.5-5.1)
[2020-07-23 07:40] LABS: Eosinophils 5 % (0-10); Hypochromasia 1+; Lymphocytes 7 % (20-55); Microcytosis 1+; Ovalocytes Slight; Platelet Estimate Adequate; Segmented Neutrophils 83 % (50-85); Total Cells Counted 100
[2020-07-23] MEDS: DILTIAZEM CD 180 MG CAPSULE PO SCH ×2 (10:09→22:19)
[2020-07-23] MEDS: PANTOPRAZOLE 40 MG TABLET PO SCH (10:10)
[2020-07-23] MEDS: TAMSULOSIN 0.4 MG CAPSULE PO SCH ×2 (10:10→22:19)
[2020-07-23] MEDS: PARoxetine 20 MG TABLET PO SCH (10:10)
[2020-07-23] MEDS: HYDROmorphone 2 MG/1 ML VIAL IV PRN ×2 (10:43→18:21)
[2020-07-23] MEDS ORDERED: TUBERCULIN SKIN TEST 0.1 ML SYRINGE INTRADERM ONE (11:09)
[2020-07-23] MEDS: SODIUM CHLORIDE 0.9% 1,000 ML IV SCH (12:13)
[2020-07-23] MEDS: ENOXAPARIN 120 MG/0.8 ML SYRINGE SUBCUT SCH (18:21)
[2020-07-23] MEDS: MINERAL OIL/PETROLATUM OPH OINT 3.5 GM TUBE BOTH EYES SCH (22:20)
[2020-07-24] MEDS: HYDROmorphone 2 MG/1 ML VIAL IV PRN ×4 (02:48→21:20)
[2020-07-24] MEDS: SODIUM CHLORIDE 0.9% 1,000 ML IV SCH ×2 (03:05→23:05)
[2020-07-24] MEDS: MEROPENEM 500 MG in SODIUM CHLORIDE 0.9% 100 ML IV SCH ×2 (06:00→18:41)
[2020-07-24 08:58] LABS: Basophils % 0.5 % (0.0-0.8); Eosinophils # 0.2 10*3/uL (0.0-0.87); Eosinophils % 2.8 % (0.00-10.9); Hemoglobin 9.9 GM/DL (14.0-18.0); Immature Granulocytes % 0.6 %; Immature Granulocytes Absolute 0.04 #; Lymphocytes # 0.6 10*3/uL (1.4-4.0); Lymphocytes % 8.7 % (21.2-54.2); Mean Corpuscular Volume 95.2 FL (87-102); Mean Platelet Volume 8.8 FL (9.6-12.0); Monocytes % 9.5 % (1.7-12.7); Neutrophils % 77.9 % (38.7-73.9); Platelet Count 296 T/CUMM (130-400); Red Blood Count 3.15 MC/CUMM (3.8-5.5); Red Cell Distribution Width 14.5 % (9.3-17.3); White Blood Count 6.3 T/CUMM (4-12)
[2020-07-24 09:23] LABS: Calcium 8.5 MG/DL (8.5-10.1); Osmolality,Calculated 303.8 MOS/KG (273-304)
[2020-07-24] MEDS: PANTOPRAZOLE 40 MG TABLET PO SCH (09:58)
[2020-07-24] MEDS: TAMSULOSIN 0.4 MG CAPSULE PO SCH ×2 (09:58→21:22)
[2020-07-24] MEDS: PARoxetine 20 MG TABLET PO SCH (09:59)
[2020-07-24] MEDS: DILTIAZEM CD 180 MG CAPSULE PO SCH ×2 (09:59→21:21)
[2020-07-24] MEDS: POLYETHYLENE GLYCOL POWDER 17 GM PACK PO SCH (13:41)
[2020-07-24] MEDS: MINERAL OIL/PETROLATUM OPH OINT 3.5 GM TUBE BOTH EYES SCH (21:30)
[2020-07-25] MEDS: MEROPENEM 500 MG in SODIUM CHLORIDE 0.9% 100 ML IV SCH ×2 (05:17→17:00)
[2020-07-25 06:15] LABS: Basophils % 0.3 % (0.0-0.8); Eosinophils # 0.1 10*3/uL (0.0-0.87); Eosinophils % 1.9 % (0.00-10.9); Hematocrit 28.2 VOL% (42.0-52.0); Hemoglobin 9.4 GM/DL (14.0-18.0); Immature Granulocytes % 0.6 %; Immature Granulocytes Absolute 0.04 #; Lymphocytes # 0.6 10*3/uL (1.4-4.0); Lymphocytes % 9.2 % (21.2-54.2); Mean Corpuscular HGB Conc 33.3 GM/DL (32-36); Mean Corpuscular Volume 96.6 FL (87-102); Mean Platelet Volume 9.6 FL (9.6-12.0); Monocytes % 9.2 % (1.7-12.7); Neutrophils % 78.8 % (38.7-73.9); Platelet Count 345 T/CUMM (130-400); Red Blood Count 2.92 MC/CUMM (3.8-5.5); Red Cell Distribution Width 14.2 % (9.3-17.3); White Blood Count 6.2 T/CUMM (4-12)
[2020-07-25 06:48] LABS: Calcium 8.4 MG/DL (8.5-10.1); Osmolality,Calculated 307.6 MOS/KG (273-304)
[2020-07-25] MEDS ORDERED: MAGNESIUM SULF RIDER 4 GM in PREMIX 1 EACH IV ONE (07:34)
[2020-07-25] MEDS: CARBOXYMETHYLCELLULOSE 1% OPH SOLN BOTH EYES PRN ×2 (09:09→22:17)
[2020-07-25] MEDS: POLYETHYLENE GLYCOL POWDER 17 GM PACK PO SCH (09:09)
[2020-07-25] MEDS: TAMSULOSIN 0.4 MG CAPSULE PO SCH ×2 (09:09→22:17)
[2020-07-25] MEDS: DILTIAZEM CD 180 MG CAPSULE PO SCH ×2 (09:09→22:17)
[2020-07-25] MEDS: PARoxetine 20 MG TABLET PO SCH (09:09)
[2020-07-25] MEDS: PANTOPRAZOLE 40 MG TABLET PO SCH (09:09)
[2020-07-25] MEDS: HYDROmorphone 2 MG/1 ML VIAL IV PRN ×2 (09:24→13:29)
[2020-07-25] MEDS ORDERED: NAPROXEN 250 MG TABLET PO PRN (17:20)
[2020-07-25] MEDS: SODIUM CHLORIDE 0.9% 1,000 ML IV SCH (18:38)
[2020-07-25] MEDS: MINERAL OIL/PETROLATUM OPH OINT 3.5 GM TUBE BOTH EYES SCH (22:17)
[2020-07-26] MEDS: ONDANSETRON 4 MG/2 ML VIAL IV PRN ×2 (01:00→22:26)
[2020-07-26] MEDS: HYDROmorphone 2 MG/1 ML VIAL IV PRN ×3 (01:00→22:27)
[2020-07-26] MEDS: MEROPENEM 500 MG in SODIUM CHLORIDE 0.9% 100 ML IV SCH ×2 (05:40→17:00)
[2020-07-26 06:59] LABS: Basophils % 0.3 % (0.0-0.8); Eosinophils # 0.1 10*3/uL (0.0-0.87); Eosinophils % 1.3 % (0.00-10.9); Hematocrit 27.8 VOL% (42.0-52.0); Immature Granulocytes % 0.3 %; Immature Granulocytes Absolute 0.02 #; Lymphocytes # 0.7 10*3/uL (1.4-4.0); Lymphocytes % 10.4 % (21.2-54.2); Mean Corpuscular HGB Conc 32.4 GM/DL (32-36); Mean Corpuscular Volume 96.9 FL (87-102); Mean Platelet Volume 9.7 FL (9.6-12.0); Monocytes % 9.5 % (1.7-12.7); Neutrophils % 78.2 % (38.7-73.9); Platelet Count 330 T/CUMM (130-400); Red Blood Count 2.87 MC/CUMM (3.8-5.5); Red Cell Distribution Width 14.2 % (9.3-17.3); White Blood Count 6.8 T/CUMM (4-12)
[2020-07-26 07:43] LABS: Calcium 8.3 MG/DL (8.5-10.1); Potassium 4.1 MMOL/L (3.5-5.1)
[2020-07-26] MEDS: POLYETHYLENE GLYCOL POWDER 17 GM PACK PO SCH (08:34)
[2020-07-26] MEDS: TAMSULOSIN 0.4 MG CAPSULE PO SCH ×2 (08:34→22:10)
[2020-07-26] MEDS: PANTOPRAZOLE 40 MG TABLET PO SCH (08:34)
[2020-07-26] MEDS: DILTIAZEM CD 180 MG CAPSULE PO SCH ×2 (08:34→22:09)
[2020-07-26] MEDS: PARoxetine 20 MG TABLET PO SCH (08:35)
[2020-07-26] MEDS ORDERED: DEXAMETHASONE 10 MG/1 ML VIAL ONE (10:23)
[2020-07-26] MEDS ORDERED: TRIAMCINOLONE ACETONIDE 40 MG/1 ML VIAL ONE (10:23)
[2020-07-26] MEDS ORDERED: methylPREDNISolone ACETATE 80 MG/1 ML VIAL ONE (10:24)
[2020-07-26 13:17] LABS: Neutrophils,Pleural Fluid 15 %; RBC,Pleural Fluid 1000 T/CUMM
[2020-07-26 13:18] LABS: Lymphocytes,Pleural Fluid 82 %; Monocytes,Pleural Fluid 3 %
[2020-07-26] MEDS ORDERED: FUROSEMIDE 20 MG/2 ML VIAL IV ONE (14:08)
[2020-07-26] MEDS: APIXABAN 5 MG TABLET PO SCH (22:10)
[2020-07-26] MEDS: CARBOXYMETHYLCELLULOSE 1% OPH SOLN BOTH EYES PRN (22:28)
[2020-07-26] MEDS: MINERAL OIL/PETROLATUM OPH OINT 3.5 GM TUBE BOTH EYES SCH (22:30)
[2020-07-26 23:15] LABS: Total Protein,Body Fluid 2.5 G/DL
[2020-07-27] MEDS: MEROPENEM 500 MG in SODIUM CHLORIDE 0.9% 100 ML IV SCH ×2 (05:55→17:41)
[2020-07-27 06:14] LABS: Basophils % 0.6 % (0.0-0.8); Eosinophils # 0.2 10*3/uL (0.0-0.87); Eosinophils % 2.3 % (0.00-10.9); Hematocrit 28.7 VOL% (42.0-52.0); Hemoglobin 9.5 GM/DL (14.0-18.0); Immature Granulocytes % 0.6 %; Immature Granulocytes Absolute 0.04 #; Lymphocytes # 0.7 10*3/uL (1.4-4.0); Lymphocytes % 10.7 % (21.2-54.2); Mean Corpuscular HGB Conc 33.1 GM/DL (32-36); Mean Platelet Volume 9.3 FL (9.6-12.0); Monocytes % 8.9 % (1.7-12.7); Neutrophils % 76.9 % (38.7-73.9); Platelet Count 331 T/CUMM (130-400); Red Blood Count 2.99 MC/CUMM (3.8-5.5); Red Cell Distribution Width 13.9 % (9.3-17.3); White Blood Count 6.5 T/CUMM (4-12)
[2020-07-27 06:29] LABS: Calcium 8.6 MG/DL (8.5-10.1); Osmolality,Calculated 294.3 MOS/KG (273-304); Potassium 4.3 MMOL/L (3.5-5.1)
[2020-07-27] MEDS: TAMSULOSIN 0.4 MG CAPSULE PO SCH ×2 (09:27→21:10)
[2020-07-27] MEDS: APIXABAN 5 MG TABLET PO SCH ×2 (09:27→21:10)
[2020-07-27] MEDS: PARoxetine 20 MG TABLET PO SCH (09:27)
[2020-07-27] MEDS: PANTOPRAZOLE 40 MG TABLET PO SCH (09:27)
[2020-07-27] MEDS: DILTIAZEM CD 180 MG CAPSULE PO SCH ×2 (09:28→21:10)
[2020-07-27] MEDS: POLYETHYLENE GLYCOL POWDER 17 GM PACK PO SCH (09:29)
[2020-07-27] MEDS ORDERED: FUROSEMIDE 40 MG/4 ML VIAL IV ONE (12:09)
[2020-07-27] MEDS ORDERED: MAGNESIUM SULF RIDER 2 GM in PREMIX 1 EACH IV ONE (12:09)
[2020-07-27] MEDS: HYDROmorphone 2 MG/1 ML VIAL IV PRN (14:53)
[2020-07-27] MEDS: MINERAL OIL/PETROLATUM OPH OINT 3.5 GM TUBE BOTH EYES SCH (21:10)
[2020-07-28] MEDS: HYDROmorphone 2 MG/1 ML VIAL IV PRN ×2 (00:03→17:46)
[2020-07-28 05:47] LABS: Basophils % 0.5 % (0.0-0.8); Eosinophils # 0.1 10*3/uL (0.0-0.87); Eosinophils % 2.2 % (0.00-10.9); Hematocrit 27.3 VOL% (42.0-52.0); Hemoglobin 8.8 GM/DL (14.0-18.0); Immature Granulocytes % 0.5 %; Immature Granulocytes Absolute 0.03 #; Lymphocytes # 0.7 10*3/uL (1.4-4.0); Lymphocytes % 11.9 % (21.2-54.2); Mean Corpuscular HGB Conc 32.2 GM/DL (32-36); Mean Corpuscular Volume 97.2 FL (87-102); Mean Platelet Volume 9.6 FL (9.6-12.0); Monocytes % 8.7 % (1.7-12.7); Neutrophils % 76.2 % (38.7-73.9); Platelet Count 338 T/CUMM (130-400); Red Blood Count 2.81 MC/CUMM (3.8-5.5); Red Cell Distribution Width 13.8 % (9.3-17.3); White Blood Count 5.9 T/CUMM (4-12)
[2020-07-28 06:04] LABS: Calcium 8.4 MG/DL (8.5-10.1); Osmolality,Calculated 293.4 MOS/KG (273-304); Potassium 4.2 MMOL/L (3.5-5.1)
[2020-07-28] MEDS: PANTOPRAZOLE 40 MG TABLET PO SCH (08:58)
[2020-07-28] MEDS: POLYETHYLENE GLYCOL POWDER 17 GM PACK PO SCH (08:58)
[2020-07-28] MEDS: APIXABAN 5 MG TABLET PO SCH ×2 (08:58→21:31)
[2020-07-28] MEDS: TAMSULOSIN 0.4 MG CAPSULE PO SCH ×2 (08:58→21:31)
[2020-07-28] MEDS: DILTIAZEM CD 180 MG CAPSULE PO SCH ×2 (09:00→21:31)
[2020-07-28] MEDS: PARoxetine 20 MG TABLET PO SCH (09:05)
[2020-07-28] MEDS: FUROSEMIDE 20 MG/2 ML VIAL IV SCH (17:43)
[2020-07-28] MEDS: MINERAL OIL/PETROLATUM OPH OINT 3.5 GM TUBE BOTH EYES SCH (21:30)
[2020-07-29 05:07] LABS: Basophils % 0.5 % (0.0-0.8); Eosinophils # 0.2 10*3/uL (0.0-0.87); Eosinophils % 1.8 % (0.00-10.9); Hematocrit 27.7 VOL% (42.0-52.0); Hemoglobin 9.2 GM/DL (14.0-18.0); Immature Granulocytes % 0.5 %; Immature Granulocytes Absolute 0.04 #; Lymphocytes # 0.6 10*3/uL (1.4-4.0); Lymphocytes % 6.6 % (21.2-54.2); Mean Corpuscular HGB Conc 33.2 GM/DL (32-36); Mean Corpuscular Volume 95.5 FL (87-102); Mean Platelet Volume 9.6 FL (9.6-12.0); Monocytes % 5.9 % (1.7-12.7); Neutrophils % 84.7 % (38.7-73.9); Platelet Count 394 T/CUMM (130-400); Red Cell Distribution Width 13.7 % (9.3-17.3); White Blood Count 8.5 T/CUMM (4-12)
[2020-07-29 05:40] LABS: Calcium 8.5 MG/DL (8.5-10.1); Osmolality,Calculated 289.5 MOS/KG (273-304); Potassium 4.1 MMOL/L (3.5-5.1)
[2020-07-29] MEDS ORDERED: MAGNESIUM SULF RIDER 2 GM in PREMIX 1 EACH IV PRN (08:25)
[2020-07-29] MEDS ORDERED: MAGNESIUM SULF RIDER 4 GM in PREMIX 1 EACH IV PRN (08:25)
[2020-07-29] MEDS: APIXABAN 5 MG TABLET PO SCH ×2 (10:14→21:48)
[2020-07-29] MEDS: PARoxetine 20 MG TABLET PO SCH (10:14)
[2020-07-29] MEDS: POLYETHYLENE GLYCOL POWDER 17 GM PACK PO SCH (10:14)
[2020-07-29] MEDS: TAMSULOSIN 0.4 MG CAPSULE PO SCH ×2 (10:14→21:48)
[2020-07-29] MEDS: PANTOPRAZOLE 40 MG TABLET PO SCH (10:14)
[2020-07-29] MEDS: FUROSEMIDE 20 MG/2 ML VIAL IV SCH ×2 (10:15→15:39)
[2020-07-29] MEDS: ACETAMINOPHEN 325 MG TABLET PO PRN (10:19)
[2020-07-29] MEDS: DILTIAZEM CD 180 MG CAPSULE PO SCH ×2 (10:20→21:52)
[2020-07-29] MEDS: MINERAL OIL/PETROLATUM OPH OINT 3.5 GM TUBE BOTH EYES SCH (21:51)
[2020-07-30 06:30] LABS: Basophils % 0.4 % (0.0-0.8); Eosinophils # 0.1 10*3/uL (0.0-0.87); Eosinophils % 1.2 % (0.00-10.9); Hematocrit 27.4 VOL% (42.0-52.0); Hemoglobin 9.2 GM/DL (14.0-18.0); Immature Granulocytes % 0.5 %; Immature Granulocytes Absolute 0.04 #; Lymphocytes # 0.6 10*3/uL (1.4-4.0); Lymphocytes % 7.7 % (21.2-54.2); Mean Corpuscular HGB Conc 33.6 GM/DL (32-36); Mean Corpuscular Volume 94.2 FL (87-102); Mean Platelet Volume 9.4 FL (9.6-12.0); Monocytes % 7.1 % (1.7-12.7); Neutrophils % 83.1 % (38.7-73.9); Platelet Count 379 T/CUMM (130-400); Red Blood Count 2.91 MC/CUMM (3.8-5.5); Red Cell Distribution Width 13.6 % (9.3-17.3); White Blood Count 8.2 T/CUMM (4-12)
[2020-07-30 06:51] LABS: Calcium 8.5 MG/DL (8.5-10.1); Osmolality,Calculated 288.5 MOS/KG (273-304); Potassium 3.8 MMOL/L (3.5-5.1)
[2020-07-30] MEDS: POLYETHYLENE GLYCOL POWDER 17 GM PACK PO SCH (08:36)
[2020-07-30] MEDS: PARoxetine 20 MG TABLET PO SCH (08:36)
[2020-07-30] MEDS: FUROSEMIDE 20 MG/2 ML VIAL IV SCH ×2 (08:37→16:30)
[2020-07-30] MEDS: DILTIAZEM CD 180 MG CAPSULE PO SCH ×2 (08:37→20:24)
[2020-07-30] MEDS: TAMSULOSIN 0.4 MG CAPSULE PO SCH ×2 (08:37→20:19)
[2020-07-30] MEDS: PANTOPRAZOLE 40 MG TABLET PO SCH (08:37)
[2020-07-30] MEDS: APIXABAN 5 MG TABLET PO SCH ×2 (08:37→20:19)
[2020-07-30] MEDS: MINERAL OIL/PETROLATUM OPH OINT 3.5 GM TUBE BOTH EYES SCH (20:24)
[2020-07-31] MEDS: DILTIAZEM CD 180 MG CAPSULE PO SCH ×2 (10:36→21:14)
[2020-07-31] MEDS: PARoxetine 20 MG TABLET PO SCH (10:37)
[2020-07-31] MEDS: PANTOPRAZOLE 40 MG TABLET PO SCH (10:39)
[2020-07-31] MEDS: APIXABAN 5 MG TABLET PO SCH ×2 (10:43→21:14)
[2020-07-31] MEDS: POLYETHYLENE GLYCOL POWDER 17 GM PACK PO SCH (10:44)
[2020-07-31] MEDS: CARBOXYMETHYLCELLULOSE 1% OPH SOLN BOTH EYES PRN (10:44)
[2020-07-31] MEDS: TAMSULOSIN 0.4 MG CAPSULE PO SCH ×2 (10:45→21:14)
[2020-07-31] MEDS: FUROSEMIDE 20 MG/2 ML VIAL IV SCH ×2 (11:00→16:05)
[2020-07-31] MEDS: MINERAL OIL/PETROLATUM OPH OINT 3.5 GM TUBE BOTH EYES SCH (21:16)
[2020-08-01] MEDS: PARoxetine 20 MG TABLET PO SCH (09:48)
[2020-08-01] MEDS: TAMSULOSIN 0.4 MG CAPSULE PO SCH (09:49)
[2020-08-01] MEDS: APIXABAN 5 MG TABLET PO SCH (09:50)
[2020-08-01] MEDS: PANTOPRAZOLE 40 MG TABLET PO SCH (09:51)
[2020-08-01] MEDS: DILTIAZEM CD 180 MG CAPSULE PO SCH (09:51)
[2020-08-01] MEDS: POLYETHYLENE GLYCOL POWDER 17 GM PACK PO SCH (09:52)
[2020-08-01] MEDS: FUROSEMIDE 20 MG/2 ML VIAL IV SCH (09:53)
[2020-08-01 12:06] VITALS: BP 123/68
== END 2020-08-01 13:10 | disposition swing bed (61) | DRG 871 ==
LOC: EDBD → EDUNIT# → N.ED 13:08 → SUATTDRO 16:53 → N.EDINP 16:53 → N.TELEN 18:13
PROVIDERS: ADMIT Internal Medicine; ATTEND Internal Medicine
PROC: IRTHORA (2020-07-26 09:05)